=== PATIENT | male | born 1960 | race American Indian/Alaskan Native ===

== ENCOUNTER 2020-02-27 15:39 | Emergency (ER) | payer SELFPAY ==
[2020-02-27] MEDS ORDERED: ASPIRIN 325 MG TAB PO ONE (16:26)
[2020-02-27 16:45] LABS: Basophils % (Auto) 0.7 % (0.0-1.8); Eosinophils # (Auto) 0.1 K/mm3 (0.0-0.4); Hematocrit 42.1 % (35.5-45.6); Hemoglobin 14.1 gm/dl (11.8-15.2); Lymphocytes # (Auto) 1.8 K/mm3 (1.2-5.4); Lymphocytes % (Auto) 41.4 % (13.4-35.0); Mean Corpuscular HGB Conc 33 % (32-34); Mean Corpuscular Volume 90 fl (84-94); Monocytes # (Auto) 0.4 K/mm3 (0.0-0.8); Monocytes % (Auto) 9.8 % (0.0-7.3); Platelet Count 210 K/mm3 (140-440); Red Blood Count 4.67 M/mm3 (3.65-5.03); Red Cell Distribution Width 15.1 % (13.2-15.2)
--- NOTE | 2020-02-27 17:00 | XRay Report ---
CHEST 2 VIEWS INDICATION / CLINICAL INFORMATION: Chest Pain. COMPARISON: None available. FINDINGS: SUPPORT DEVICES: None. HEART / MEDIASTINUM: No significant abnormality. LUNGS / PLEURA: No significant pulmonary or pleural abnormality. No pneumothorax. ADDITIONAL FINDINGS: No significant additional findings. IMPRESSION: 1. No acute abnormality of the chest. Signer Name: Ian Moreno MD Signed: 02/27/2020 4:56 PM Workstation Name: [id number]
[2020-02-27 17:06] LABS: BUN/Creatinine Ratio 14; Blood Urea Nitrogen 18 mg/dL (9-20); Calcium 9.1 mg/dL (8.4-10.2); Hemolysis Index 7
[2020-02-27 21:18] VITALS: BP 155/89
[2020-02-27] MEDS ORDERED: HYDROcodone/ACETAMINOPHEN 5-325 MG TAB PO ONE (21:25)
[2020-02-27] MEDS ORDERED: predniSONE 20 MG TAB PO ONE (21:25)
--- NOTE | 2020-02-27 21:25 | Emergency Department Report ---
ED Chest Pain HPI - General Chief Complaint: Dizziness Stated Complaint: DIZZY PUI?: No Time Seen by Provider: 02/27/20 21:15 Source: EMS Mode of arrival: Ambulatory Limitations: No Limitations - History of Present Illness Initial Comments: Mr. Luis is a 60-year-old male with history of hypertension tobacco dependence who presents with chest pain lightheadedness while outside performing yard work this afternoon. He felt overheated. He has persistent sharp central chest pain worse with palpation. He has mild nonproductive cough. He did not pass out. No previous history of heart disease. He has been compliant with all his medications. He is followed at [facility]. MD Complaint: chest pain -: Gradual, hour(s) (Several hours while doing yard work) Onset: during rest, during exertion Pain Location: substernal, left chest Severity: mild Severity scale (0 -10): 4 Quality: sharp Consistency: constant Improves With: rest - Related Data Allergies Allergy/AdvReac Type Severity Reaction Status Date / Time No Known Allergies Allergy Unverified 02/27/20 16:21 Heart Score - HEART Score History: Slightly suspicious EKG: Normal Age: 45-65 Risk factors: 1-2 risk factors Troponin: < normal limit HEART Score: 2 ED Review of Systems ROS: Stated complaint: DIZZY Other details as noted in HPI Comment: All other systems reviewed and negative Constitutional: denies: fever, malaise Respiratory: cough Cardiovascular: chest pain Gastrointestinal: denies: abdominal pain, nausea, vomiting ED Past Medical Hx - Past Medical History Previous Medical History?: Yes Hx Hypertension: Yes Additional medical history: Back pain - Surgical History Past Surgical History?: Yes Additional Surgical History: Umbilical hernia - Social History Smoking Status: Current Every Day Smoker Substance Use Type: Alcohol, Marijuana ED Physical Exam - General Limitations: No Limitations General appearance: alert, in no apparent distress - Head Head exam: Present: atraumatic, normocephalic - Eye Eye exam: Present: normal appearance - ENT ENT exam: Present: mucous membranes moist - Neck Neck exam: Present: normal inspection, full ROM - Respiratory Respiratory exam: Present: normal lung sounds bilaterally. Absent: respiratory distress, wheezes, rales, rhonchi - Cardiovascular Cardiovascular Exam: Present: regular rate, normal rhythm, normal heart sounds. Absent: systolic murmur, diastolic murmur, rubs, gallop - GI/Abdominal GI/Abdominal exam: Present: soft, normal bowel sounds. Absent: distended, tenderness, guarding, rebound - Rectal Rectal exam: Present: deferred - Extremities Exam Extremities exam: Present: normal inspection - Back Exam Back exam: Present: normal inspection - Neurological Exam Neurological exam: Present: alert, oriented X3 - Psychiatric Psychiatric exam: Present: normal affect, normal mood - Skin Skin exam: Present: warm, dry, intact, normal color. Absent: rash ED Course Vital Signs 02/27/20 02/27/20 16:24 21:17 Temperature 98.5 F 98.2 F Pulse Rate 76 70 Respiratory 18 16 Rate Blood Pressure 114/76 Blood Pressure 155/89 [Left] O2 Sat by Pulse 98 100 Oximetry ED Medical Decision Making - Lab Data Result diagrams: 02/27/20 16:33 02/27/20 16:33 Laboratory Results - last 24 hr 02/27/20 02/27/20 02/27/20 16:33 16:33 18:54 WBC 4.3 L RBC 4.67 Hgb 14.1 Hct 42.1 MCV 90 MCH 30 MCHC 33 RDW 15.1 Plt Count 210 Lymph % (Auto) 41.4 H Becker % (Auto) 9.8 H Eos % (Auto) 2.0 Baso % (Auto) 0.7 Lymph # 1.8 Becker # 0.4 Eos # 0.1 Baso # 0.0 Seg Neutrophils % 46.1 Seg Neutrophils # 2.0 Sodium 145 Potassium 4.0 Chloride 108.7 H Carbon Dioxide 23 Anion Gap 17 BUN 18 Creatinine 1.3 Estimated GFR > 60 BUN/Creatinine Ratio 14 Glucose 94 Calcium 9.1 Troponin T < 0.010 < 0.010 - EKG Data EKG shows normal: sinus rhythm, axis, intervals, QRS complexes, ST-T waves Rate: normal - EKG Data Interpretation: normal EKG - Radiology Data Radiology results: report reviewed Chest radiograph: No acute process according to radiology impression - Medical Decision Making 1. Lightheadedness when outdoors performing yard work. As per the patient became overheated. It was a very hot day today. 2. Chest pain-persistent while at rest for the past several hours. Atypical for ACS. I suspect chest wall pain. EKG is normal. Troponin x 2 negative. Heart score 2. Chest x-ray without findings of pneumonia or pneumothorax. I have faxed referral request to [facility] for outpatient cardiac evaluation. Critical care attestation.: If time is entered above; I have spent that time in minutes in the direct care of this critically ill patient, excluding procedure time. ED Disposition Clinical Impression: Lightheadedness, Chest pain Disposition: DC-01 TO HOME OR SELFCARE Is pt being admited?: No Does the pt Need Aspirin: No Condition: Stable Instructions: Chest Pain (ED) Additional Instructions: Please follow-up with your primary doctor and our delivery truck driver heavy within the next 3 days. Referrals: TALA JOY MD [Staff Physician] - 2-3 Days
[2020-02-27] MEDS ORDERED: ASPIRIN 325 MG TAB ONE (21:29)
== END 2020-02-27 21:45 | disposition home or self-care (01) ==
LOC: ED 15:39
DX: R42 Dizziness and giddiness (principal); R07.89 Other chest pain; R05 Cough; I10 Essential (primary) hypertension; F17.200 Nicotine dependence, unspecified, uncomplicated; F12.10 Cannabis abuse, uncomplicated; Z98.890 Other specified postprocedural states
CPT/HCPCS: 36415; 71046; 80048; 84484; 85025; 93005; 99284; J7512